=== PATIENT | female | born 1965 | race Hispanic/Latino ===

== ENCOUNTER → 2019-06-02 | Day surgery (SDC) | payer OTHER ==
[2019-05-31 13:51] LABS: BLOOD UREA NITROGEN 11 mg/dL (7-26); BUN/CREATININE RATIO 16 (6-25); CALCIUM 9.3 mg/dL (8.4-10.2); CARBON DIOXIDE 27 mmol/L (22-29); CHLORIDE 99 mmol/L (98-107); CREATININE, SERUM 0.68 mg/dL (0.57-1.11); EST GLOMERULAR FILTRATION RATE > 60 ML/MIN (60-); GLUCOSE 262 mg/dL (74-118); SODIUM 137 mmol/L (136-145)
--- NOTE | 2019-05-31 14:32 | Diagnostic Imaging Report ---
Exam: KUB - 2 views Clinical History: Renal calculi Comparison: None Findings: Staghorn calculi of the right renal collecting system. No calcifications concerning for renal calculi overlying the left kidney. Nonobstructive bowel gas pattern. Status post cholecystectomy. Gastric lap band partially visualized. Impression: Right renal staghorn calculi. No radiographic evidence of left renal calculi. Signed by: Parris Johnson MD on 05/31/2019 2:29 PM
[~2019-06-02] MED LIST: CEFTRIAXONE SOD 1 GM/NS 50 ML 50 ML IV ONE; DEXAMETHASONE SOD PHOS INJ 4 MG/ML VIAL ONE; LIDOCAINE HCL 2% LOCAL INJ 5 ML SDV VIAL INJ ONE; METFORMIN HCL500 MG PO; METOCLOPRAMIDE HCL 10 MG/2ML VIAL ONE; MIDAZOLAM HCL 2 MG/2 ML VIAL ONE; ONDANSETRON HCL INJ 2MG/ML 2ML 2 MG/ML VIAL ONE; PROPOFOL IV EMULSION 10 MG/ML 20 ML VIAL ONE; SEVOFLURANE INHAL SOLN 250 ML PEN BTL ONE; VASOTEC10 M1 PO
--- OUTSIDE RECORDS SUMMARY | 2019-06-02 06:30 | XMS REPORT | Clinical Summary ---
Author Author [facility] Address Unknown Phone Unavailable Care Team Providers Care Hoop Maker Name Role Phone Primo Gray MD PCP Allergies No Known Allergies Medications End Date Status Medication Sig Dispensed Refills Start Date Active aspirin (ECOTRIN) 81 MG Take 81 mg by 0 enteric coated tablet mouth daily. Active enalapril (VASOTEC) 20 MG Take 20 mg by 0 tablet mouth daily. Active metFORMIN (GLUCOPHAGE) Take 1,000 mg 0 1000 MG tablet by mouth 2 (two) times a day with meals. Active multivitamin (THERAGRAN) Take 1 tablet 0 tablet by mouth daily. Active Problems Problem Noted Date Urinary tract infection associated with catheterization of urinary tract 04/15/2016 Renal stone 04/15/2016 DM II (diabetes mellitus, type II), controlled 04/15/2016 Social History Date Tobacco Use Types Packs/Day Years Used Never Smoker Alcohol Use Drinks/Week oz/Week Comments Yes Sex Assigned at Date Recorded Not on file Industry Job Start Date Occupation Not on file Not on file Not on file Travel End Travel History Travel Start No recent travel history available. Last Filed Vital Signs Not on file Plan of Treatment Health Maintenance Due Date Last Done Comments DIABETIC RETINAL EYE EXAM 1965 DIABETIC FOOT EXAM 1974 URINE MICROALBUMIN 1974 BREAST CANCER SCREENING 2014 COLONOSCOPY SCREENING 2014 SHINGLES VACCINES (#1) 2014 INFLUENZA VACCINE 06/22/2019 Results Not on fileafter 06/01/2018 Insurance Type Payer Benefit Subscriber ID Effective Phone Address Plan / Dates Group PPO BCBS BCBS xxxxxxxxxxxx 2016-P CHOICE resent PPO/[employer] EM[employer] PPO HMO BCBS MEDICARE BLUE xxxxxxxxxxxx 2016-P MEDICARE resent ADVANTAGE HMO Advance Directives Patient has advance care planning documents on file. For more information, lito carpenter contact: Mack Chandra [address] [place] [address]
--- OUTSIDE RECORDS SUMMARY | 2019-06-02 06:30 | XMS REPORT | Clinical Summary ---
Author Author [facility] Address Unknown Phone Unavailable Care Team Providers Care Vp Cardiovascular Name Role Phone Sharpless PCP Allergies No Known Allergies Medications End Date Status Medication Sig Dispensed Refills Start Date Active enalapril (VASOTEC) 20 MG Take 20 mg by 0 tablet mouth daily. Active METFORMIN HCL (METFORMIN Take by 0 ORAL) mouth. Active aspirin 81 MG EC tablet Take 81 mg by 0 mouth daily. Active Problems Not on file Social History Date Tobacco Use Types Packs/Day Years Used Never Smoker Alcohol Use Drinks/Week oz/Week Comments No Sex Assigned at Date Recorded Not on file Industry Job Start Date Occupation Not on file Not on file Not on file Travel End Travel History Travel Start No recent travel history available. Last Filed Vital Signs Not on file Plan of Treatment Not on file Results Not on fileafter 06/01/2018 Insurance Payer Benefit Subscriber ID Type Phone Address Plan / Group CR [employer] CR xxxxxxxxxx [employer] E EXCHANGE
--- OUTSIDE RECORDS SUMMARY | 2019-06-02 06:31 | XMS REPORT ---
Author Author [facility] Address Unknown Phone Unavailable Care Team Providers Care Aircraft Maintenance Engineer Name Role Phone JOLLY GONZALEZ Unavailable Unavailable GEO GRIMALDO Unavailable Unavailable Problems This patient has no known problems. Allergies, Adverse Reactions, Alerts This patient has no known allergies or adverse reactions. Medications This patient has no known medications. Results Test Description Test Time Test Comments Text Results Atomic Results Result Comments ABDOMEN-1VIEW ([facility]) 2019-05-31 14:27:00 [place] [address] Patient Name: FREDY POST MR #: [id number] : 1965 Age/Sex: 53/F Req #: [id number] Adm Physician: Ordered by: JOLLY GONZALEZ MD Report #: [id number] Location: OR Room/Bed: Procedure: [id number] DX/ABDOMEN-1VIEW ([facility]) Exam Date: 05/31/19 Exam Time: 1329 REPORT STATUS: Signed Exam: KUB - 2 views Clinical History: Renal calcul i Comparison: None Findings: Staghorn calculi of the right renal collecting system. No calcifications concerning for renal calculi overlying the left kidney. Nonobstructive bowel gas pattern. Status post cholecystectomy. Gastric lap band partially visualized. Impression: Right renal staghorn calculi. No radiographic evidence of left renal calculi. Signed by: Nasim Park MD on 05/31/2019 2:29 PM Dictated By: NASIM PARK MD 28 Transcribed By: JUANIS on 05/31/191428 COPY TO: JOLLY GONZALEZ MD URINE CULTURE 2017-04-06 08:34:00 CULTURE (BEAKER) (test bktu=7714) See comment Ampicillin (test code=26) Ciprofloxacin (test code=7) Clindamycin (test code=10) Daptomycin (test code=59) Erythromycin (test code=4) Gentamicin (test code=18) Gentamicin High Level Synergy (test pqcs=602) Levofloxacin (test code=22) Linezolid (test code=40) Moxifloxacin (test code=36) Nitrofurantoin (test code=23) Oxacillin (test code=14) Rifampin (test code=43) Streptomycin High Level Synergy (test skfo=315) Tetracycline (test code=2) Tigecycline (test iwzi=070) Trimethoprim + Sulfamethoxazole (test code=47) Vancomycin (test code=13) CULTURE (BEAKER) (test snwi=5551) 40-49,000 col/mL Enterococcus species <10,000 col/mL skin floraURINALYSIS W/ [id number] 13:28:00* Test Item Value Reference Range Comments COLOR (BEAKER) (test tjyv=354) Yellow CLARITY (BEAKER) (test uzjz=049) Cloudy SPECIFIC GRAVITY UA (BEAKER) (test tdhr=652) 1.020 1.001-1.035 PH UA (BEAKER) (test ekog=349) 7.0 5.0-8.0 PROTEIN UA (BEAKER) (test eprc=547) 30 mg/dL Negative GLUCOSE UA (BEAKER) (test zour=744) Negative Negative KETONES UA (BEAKER) (test jahh=711) Negative Negative BILIRUBIN UA (BEAKER) (test iknr=772) Negative Negative BLOOD UA (BEAKER) (test ujcn=233) Small Negative NITRITE UA (BEAKER) (test lxqc=190) Negative Negative LEUKOCYTE ESTERASE UA (BEAKER) (test zfjw=255) Small Negative UROBILINOGEN UA (BEAKER) (test jssi=023) 0.2 mg/dL 0.2-1.0 BACTERIA (BEAKER) (test wpfx=846) Many YEAST (BEAKER) (test buse=8224) Moderate RBC UA-MANUAL (BEAKER) (test dbli=4519) 10-20 /HPF WBC UA-MANUAL (BEAKER) (test vepx=1431) >100 /HPF SQUAMOUS EPITHELIAL MANUAL (BEAKER) (test frea=3645) 10-20 /HPF SOURCE(BEAKER) (test tmeq=3886)
--- NOTE | 2019-06-02 07:10 | NUR ---
SPIRITUAL CARE - Pre-Surgery Assessment: Pt in bed. Pt identified as Hindu. Pt reported supportive attention from family and friends. Intervention: I provided pastoral presence, hospitality, sympathetic listening, and prayer. I acquainted pt with availability of emt i/99 while hospitalized. Outcome: Pt expressed appreciation for visit. No need for follow up indicated at this time. JOHNSON [facility]lain Spiritual Care Department O: [phone] Pager: [phone] ([phone] number calling from)
[2019-06-02 10:30] VITALS: BP 131/85
--- NOTE | 2019-06-02 11:07 | Operative Report ---
DATE OF PROCEDURE: 06/02/2019 SURGEON: Buddy Bailey MD PREOPERATIVE DIAGNOSIS: Right staghorn calculi. POSTOPERATIVE DIAGNOSIS: Right staghorn calculi. PROCEDURES: 1. Staged right-sided shock wave lithotripsy. 2. Supervision of fluoroscopy. ANESTHESIA: General. ESTIMATED BLOOD LOSS: Minimal. COMPLICATIONS: None. INDICATIONS: Ms. Cr is a 53-year-old noncompliant patient, who has seen multiple previous urologists, who has decreased function of 24% in the right kidney and a true staghorn calculi. She and I had a long discussion of alternatives, risks, and benefits, we will start and attempt sandwich therapy first attacking the lower pole to attempt to gain access to the true staghorn calculi. She voiced understanding of the options, alternatives, risks, and benefits and elected to proceed. PROCEDURE IN DETAIL: After informed consent was obtained, the patient was taken to the operative suite, placed supine on the operating table, underwent general anesthesia by the Anesthesia service. Stone was localized in the X, Y and Z planes. Attention was turned to lower pole. This was shocked. The details of treatment per treatment report. The patient tolerated the procedure well and was transported to recovery room in excellent condition. Supervision of fluoroscopy: I was present for the entire procedure and supervised fluoroscopy, there was no radiologist present. Dosage per treatment report. MD DEBORAH Tapia/MODL /[id number]
== END | disposition home or self-care (01) ==
LOC: OR 06:13
PROVIDERS: ATTEND Urology
DX: N20.0 Calculus of kidney (principal); N39.0 Urinary tract infection, site not specified; G47.33 Obstructive sleep apnea (adult) (pediatric); I10 Essential (primary) hypertension; E11.9 Type 2 diabetes mellitus without complications; E66.01 Morbid (severe) obesity due to excess calories; Z01.810 Encounter for preprocedural cardiovascular examination; Z01.812 Encounter for preprocedural laboratory examination; Z79.84 Long term (current) use of oral hypoglycemic drugs; Z79.82 Long term (current) use of aspirin; Z68.35 Body mass index [BMI] 35.0-35.9, adult; Z84.1 Family history of disorders of kidney and ureter
CPT/HCPCS: 36415 ×2; 50590; 74018; 80048; 82948; 93005; J0696; J1100; J2001; J2250; J2405; J2704; J2765